=== PATIENT | male | born 1995 | race Caucasian/White ===

== ENCOUNTER 2019-02-19 00:15 | Emergency (ER) | payer BC ==
[~2019-02-19] VITALS: Ht 185.4 cm; Wt 77.6 kg
[2019-02-19 00:42] LABS: URINE BILIRUBIN NEGATIVE (Negative); URINE BLOOD 2+ (Negative); URINE CLARITY CLEAR; URINE COLOR YELLOW; URINE GLUCOSE-RANDOM NEGATIVE (Negative); URINE KETONES NEGATIVE (Negative); URINE LEUKOCYTES-REFLEX NEGATIVE (Negative); URINE NITRITE-REFLEX NEGATIVE (Negative); URINE PROTEIN NEGATIVE (Negative); URINE SPECIFIC GRAVITY 1.025 (1.005-1.030); URINE UROBILINOGEN 0.2 E.U./dl (0.2-1.0)
[2019-02-19 00:50] LABS: AMP/METHAMP Negative (Negative); BARBITURATES Negative (Negative); BENZODIAZEPINES Negative (Negative); COCAINE Negative (Negative); METHADONE Negative (Negative); OPIATES Negative (Negative); PCP Negative (Negative); THC Negative (Negative)
[2019-02-19 00:58] LABS: ABSOLUTE EOSINOPHILS 0.1 thou/uL (0.0-0.7); ABSOLUTE LYMPHOCYTES 2.6 thou/uL (0.8-5.3); ABSOLUTE MONOCYTES 0.7 thou/uL (0.0-1.2); ABSOLUTE NEUTROPHILS 5.3 thou/uL (1.6-8.1); BASOPHILS 0.5 %; EOSINOPHILS 0.7 %; LYMPHOCYTES 30.2 %; MCH 30.4 pg (26.0-34.0); MCV 89.4 fL (80.0-100.0); MONOCYTES 8.1 %; MPV 7.3 fl. (7.2-11.1); NUCLEATED RBCS 0 /100WBC; PLATELET COUNT* 283 thou/uL (150-400); POLYS 60.5 %; RBC 5.26 mil/uL (4.50-6.00); RDW-CV 13.2 % (10.5-14.5); WBC 8.7 thou/uL (4.0-11.0)
[2019-02-19 01:05] LABS: SQUAMOUS 0-3 Few /LPF (0-3); URINE WBC-REFLEX None Seen /HPF (0-5)
[2019-02-19 01:06] LABS: AMORPHOUS URATES Many /LPF (None Seen); BACTERIA-REFLEX 1-9 Few /HPF (None Seen); CASTS None Seen /LPF (None Seen); MUCUS 0-3 Light strn/LPF (None Seen); URINE RBC 3-10 Few /HPF (0-2)
[2019-02-19 01:12] LABS: ALCOHOL 110 mg/dL (<10); SALICYLATE < 2.8 mg/dL (2.8-20.0)
[2019-02-19 01:13] LABS: ACETAMINOPHEN < 2 ug/mL (10-30)
[2019-02-19 01:19] LABS: CALCIUM 8.7 mg/dL (8.5-10.1); POTASSIUM 3.5 mmol/L (3.5-5.1)
[2019-02-19 01:30] LABS: ALBUMIN 4.3 g/dL (3.4-5.0); TOTAL BILIRUBIN 0.5 mg/dL (<0.1-1.0)
[2019-02-19 04:50] VITALS: BP 100/70
--- NOTE | 2019-02-21 14:33 | EKG ---
[place] [address] ELECTROCARDIOGRAM REPORT Name: JADE TA Room: [facility]#: [id number] Admission: 02/19/19 Attend Phys: Discharge: 02/19/19 Date of : [birth year] Report #: [id number] THIS REPORT FOR: //name// [facility] ED Test Date: 2019-02-19 Test Time: 00:50:27 Pat Name: JADE TA Department: Room: Gender: M Treatment Plant Operator: : 1995 Requested By: Shane Rodriguez Order Number: [id number] MD: Hu Johnson Measurements Intervals [place] Rate: 89 P: 93 HI: 150 QRS: 92 QRSD: 94 T: 21 QT: 354 QTc: 431 Interpretive Statements Sinus rhythm Borderline right axis deviation Baseline wander in lead(s) II,III,aVF No previous ECG available for comparison Electronically Signed On 02-21-2019 14:32:53 [employer] by Hu Johnson [email or web address] <ELECTRONICALLY SIGNED> By: Hu Johnson MD, [facility] 02/21/19 1432 0050 0050 Hu Johnson MD, FACC /EPI
== END 2019-02-19 04:50 | disposition home or self-care (01) ==
LOC: M.ERS 00:15
PROVIDERS: Emergency Medicine Emergency Medical Services
DX: F10.129 Alcohol abuse with intoxication, unspecified (principal); Z86.73 Personal history of transient ischemic attack (TIA), and cerebral infarction without residual deficits; Y90.5 Blood alcohol level of 100-119 mg/100 ml